=== PATIENT | male | born 1970 | race Caucasian/White ===

== ENCOUNTER → 2017-08-25 | Outpatient (CLI) | payer MEDICARE, MEDICAID ==
[~2017-08-25] MED LIST: AMARYL1 MG PO; FLONASE0.05 MG/AC NS; IRON325 M1 PO; METFORMIN500 MG PO; SYNTHROID0.1 MG PO; VITAMIN C500 MG PO; VITAMIN D 400400 IU PO; ZITHROMAX Z PA250 MG PO
== END ==
LOC: MHCPAIN 10:26
DX: G89.29 Other chronic pain (principal); M50.90 Cervical disc disorder, unspecified, unspecified cervical region; R51 Headache; M96.1 Postlaminectomy syndrome, not elsewhere classified
CPT/HCPCS: G0463

== ENCOUNTER → 2017-09-21 | Outpatient (CLI) | payer MEDICARE, MEDICAID | LOC: MHCPAIN 09:32 | DX: M50.322 Other cervical disc degeneration at C5-C6 level (principal); M96.1 Postlaminectomy syndrome, not elsewhere classified; Z98.1 Arthrodesis status ==

== ENCOUNTER → 2017-09-29 | Outpatient (CLI) | payer MEDICARE, MEDICAID | LOC: MHCPAIN 10:45 | DX: G89.29 Other chronic pain (principal); M50.90 Cervical disc disorder, unspecified, unspecified cervical region; R51 Headache; M96.1 Postlaminectomy syndrome, not elsewhere classified | CPT/HCPCS: G0463 ==

== ENCOUNTER → 2017-11-02 | Outpatient (CLI) | payer MEDICARE, MEDICAID | LOC: MHCPAIN 11:58 | DX: M50.322 Other cervical disc degeneration at C5-C6 level (principal); M96.1 Postlaminectomy syndrome, not elsewhere classified; Z98.1 Arthrodesis status | CPT/HCPCS: J3010 ==

== ENCOUNTER → 2017-11-29 | Outpatient (CLI) | payer MEDICARE, MEDICAID | LOC: MHCPAIN 12:44 | DX: G89.29 Other chronic pain (principal); M50.90 Cervical disc disorder, unspecified, unspecified cervical region; M54.12 Radiculopathy, cervical region; R51 Headache; M96.1 Postlaminectomy syndrome, not elsewhere classified | CPT/HCPCS: G0463 ==

== ENCOUNTER → 2017-12-28 | Outpatient (CLI) | payer MEDICARE, MEDICAID | LOC: MHCPAIN 13:09 | DX: M50.31 Other cervical disc degeneration, high cervical region (principal); M96.1 Postlaminectomy syndrome, not elsewhere classified | CPT/HCPCS: J2250; J3010 ==

== ENCOUNTER → 2018-02-27 | Outpatient (CLI) | payer MEDICARE, MEDICAID | LOC: MHCPAIN 14:00 | DX: G89.29 Other chronic pain (principal); M50.30 Other cervical disc degeneration, unspecified cervical region; M54.81 Occipital neuralgia; M79.2 Neuralgia and neuritis, unspecified | CPT/HCPCS: G0463 ==

== ENCOUNTER → 2018-05-30 | Outpatient (CLI) | payer MEDICARE, MEDICAID | LOC: MHCPAIN 14:47 | DX: G89.29 Other chronic pain (principal); M50.90 Cervical disc disorder, unspecified, unspecified cervical region; R51 Headache; M96.1 Postlaminectomy syndrome, not elsewhere classified | CPT/HCPCS: G0463 ==

== ENCOUNTER → 2021-09-23 | Outpatient (CLI) | payer MEDICARE, MEDICAID ==
[~2021-09-23] MED LIST changes: +BETAMETHASONE VA0.1% TP; +DESOWEN0.051 TP; +FARXIGA10 PO; +FLAGYL500 MG PO; +FLONASEALLERGY NS; +HUMALOG PEN100 U/ML SQ; +LANTUS SOLOS100 U/ML SQ; +MOBIC 7.5MG7.5 MG PO; +NIZORAL SHAMPO120 M1 TP; +PERIDEX (CHLOR480 ML MM; +REVATIO20 MG PO; +SYNTHROID 0.10.15 MG PO; +VITAMIN D31000 I1 PO; +ZANAFLEX CAPSULE4 MG PO
== END ==
LOC: COL.RAD 14:00
DX: R22.0 Localized swelling, mass and lump, head (principal); R68.84 Jaw pain
CPT/HCPCS: Q9967

== ENCOUNTER 2021-09-26 08:30 | Outpatient (RCR) | payer MEDICARE, MEDICAID ==
[2021-09-24 08:53] VITALS: BP 167/78; PULSE 78; TEMP 99.6
--- NOTE | 2021-09-24 10:20 | NUR ---
Pt ambulates out of dept with steady gait at this time. INT left in place, padded with gauze and wrapped with coban. Pt is going directly to oral surgery office. He will return tomorrow morning for continued IV abx. He tolerated today's medications without issue, no signs of reaction prior to departing.
[2021-09-25 08:42] VITALS: BP 175/87; PULSE 92; TEMP 100.3
--- NOTE | 2021-09-25 10:07 | NUR ---
I could not flush, nor get any blood return from purple line of patient's PICC. I flushed and got blood return from red port, and used that for his antibiotics, this morning. I called House Superviser (Katelynn) to ask if there was anything specific I needed to do. She stated no, Catie would check it on Monday, but to try to flush again before he left. I was not successful in getting it to flush prior to discharge.
[~2021-09-26] VITALS: Ht 172.7 cm; Wt 191.8 kg
== END 2021-09-27 08:00 ==
LOC: EUO 08:30
DX: M27.2 Inflammatory conditions of jaws (principal)
CPT/HCPCS: J0696; J1100; J2250; J2405; J2704; J3010